=== PATIENT | female | born 1985 | race American Indian/Alaskan Native ===

== ENCOUNTER 2018-08-07 21:47 | Emergency (ER) | payer OTHER ==
[2018-08-07] MEDS ORDERED: ASPIRIN PO ONE (22:54)
[2018-08-07 23:48] LABS: Basophils % (Auto) 0.3 % (0.0-1.8); Eosinophils % (Auto) 1.4 % (0.0-4.3); Hematocrit 34.4 % (30.3-42.9); Hemoglobin 11.7 gm/dl (10.1-14.3); Lymphocytes # (Auto) 2.3 K/mm3 (1.2-5.4); Lymphocytes % (Auto) 31.6 % (13.4-35.0); Mean Corpuscular HGB Conc 34 % (30-34); Mean Corpuscular Volume 92 fl (79-97); Monocytes % (Auto) 10.4 % (0.0-7.3); Platelet Count 300 K/mm3 (140-440); Red Blood Count 3.75 M/mm3 (3.65-5.03); Red Cell Distribution Width 12.5 % (13.2-15.2)
[2018-08-07 23:49] LABS: Eosinophils # (Auto) 0.1 K/mm3 (0.0-0.4); Monocytes # (Auto) 0.8 K/mm3 (0.0-0.8)
[2018-08-08 00:02] LABS: BUN/Creatinine Ratio 13; Blood Urea Nitrogen 12 mg/dL (7-17); Calcium 9.7 mg/dL (8.4-10.2); Hemolysis Index 7
--- NOTE | 2018-08-08 00:04 | XRay Report ---
PROCEDURE: Chest. TECHNIQUE: PA view. HISTORY: Chest pain. COMPARISONS: None. FINDINGS: The heart and mediastinum appear normal. The lungs are clear and well expanded. There are no pleural effusions. The soft tissues and regional skeleton are unremarkable. There is a minimal thoracic scoli osis. Bilateral nipple piercings are noted. IMPRESSION: No evidence of acute disease. This document is electronically signed by Darron Hobbs MD., August 08 2018 12:02:09 AM ET
--- NOTE | 2018-08-08 01:44 | Emergency Department Report ---
ED Chest Pain HPI - General Chief Complaint: Chest Pain Stated Complaint: CHEST PAIN Time Seen by Provider: 08/07/18 22:53 Source: patient Mode of arrival: Ambulatory Limitations: No Limitations - History of Present Illness Initial Comments: 32-year-old female presents to the emergency department from home with complaint of some midsternal chest tightness with some shortness of breath started about 30 minutes prior to arrival. She says that the symptoms come and go and currently she is asymptomatic. Patient denies any past medical history. There is no family history of cardiac disease or events. She is not a tobacco smoker and denies any illicit drug use. She has not taken anything for her symptoms prior to arrival. Patient did have a recent trip down to [place] where she drove down. She denies any lower extremity swelling. - Related Data Allergies Allergy/AdvReac Type Severity Reaction Status Date / Time No Known Allergies Allergy Verified 08/07/18 21:54 Heart Score - HEART Score History: Slightly suspicious EKG: Normal Age: < 45 Risk factors: No known risk factors Troponin: < normal limit HEART Score: 0 - Critical Actions Critical Actions: 0-3 pts:0.9-1.7%risk of adverse cardiac event.Candidate for discharge ED Review of Systems ROS: Stated complaint: CHEST PAIN Other details as noted in HPI Comment: All other systems reviewed and negative Constitutional: denies: chills, fever Eyes: denies: eye pain, vision change ENT: denies: ear pain, throat pain Respiratory: shortness of breath. denies: cough Cardiovascular: chest pain. denies: palpitations Gastrointestinal: denies: abdominal pain, vomiting Genitourinary: denies: dysuria, frequency Musculoskeletal: denies: back pain, arthralgia Skin: denies: rash, lesions Neurological: denies: headache, weakness ED Past Medical Hx - Past Medical History Previous Medical History?: No - Surgical History Past Surgical History?: No - Social History Smoking Status: Never Smoker Substance Use Type: None ED Physical Exam - General Limitations: No Limitations - Other Other exam information: GENERAL: The patient is well-developed well-nourished. HENT: Normocephalic. Atraumatic. Patient has moist mucous membranes. EYES: Extraocular motions are intact. NECK: Supple. Trachea is midline. CHEST/LUNGS: Clear to auscultation. There is no respiratory distress noted. HEART/CARDIOVASCULAR: Regular. There is no tachycardia. There is no murmur. ABDOMEN: Abdomen is soft, nontender. Patient has normal bowel sounds. There is no abdominal distention. SKIN: Skin is warm and dry. NEURO: The patient is awake, alert, and oriented. The patient is cooperative. The patient has no focal neurologic deficits. The patient has normal speech. MUSCULOSKELETAL: There is no tenderness or deformity. There is no limitation range of motion. There is no evidence of acute injury. ED Course Vital Signs 08/08/18 08/08/18 08/08/18 01:23 01:31 01:46 Temperature 98.9 F Pulse Rate 53 L 61 Respiratory 17 15 Rate Blood Pressure 134/74 O2 Sat by Pulse 100 100 Oximetry ZANE score - Zane Score Age > 65: (0) No Aspirin use within the Past 7 Days: (0) No 3 or more CAD Risk Factors: (0) No 2 or more Angina events in past 24 hrs: (1) Yes Known CAD with more than 50% Stenosis: (0) No Elevated Cardiac Markers: (0) No ST Deviation Greater than 0.5mm: (0) No ZANE Score: 1 ED Medical Decision Making - Lab Data Result diagrams: 08/07/18 23:27 08/07/18 23:27 - EKG Data -: EKG Interpreted by Me EKG shows normal: sinus rhythm, axis, intervals, QRS complexes, ST-T waves Rate: normal - EKG Data When compared to previous EKG there are: previous EKG unavailable Interpretation: normal EKG - Radiology Data Radiology results: report reviewed, image reviewed interpreted by me: Chest x-ray does not show any acute process. There are no pleural effusions, o bvious pneumonia and there is no pneumothorax. PROCEDURE: CT ANGIO CHEST TECHNIQUE: Computerized tomographic angiography of the chest was performed after the IV injection of iodinated nonionic contrast including image processing. The image data was postprocessed using 2-dimensional multiplanar reformatted (MPR) and 3-dimensional (MIP and/or volume rendered) techniques. Automated exposure control, adjustment of mA and/or kV according to patient size, or iterative reconstruction dose optimization techniques were utilized. CT DOSE LENGTH PRODUCT: 709.9 mGycm HISTORY: CP, elevated dimer COMPARISONS: Chest x-ray 6 08/07/2018 . FINDINGS: Heart and pericardium: Normal. Thoracic aorta: Normal. Pulmonary vasculature: Normal. Lymph nodes: No enlarged thoracic lymph nodes. Lungs: Normal. Pleural space: No effusion, thickening, or pneumothorax. Musculoskeletal structures: No significant abnormality. Upper abdominal structures: No significant abnormality. IMPRESSION: Normal Examination . No evidence of pulmonary embolus, aortic dissection, or acute process in the chest. This document is electronically signed by Jean Teague MD., August 08 2018 06:06:38 AM ET Transcribed By: RB Dictated By: JEAN TEAGUE MD Electronically Authenticated By: JEAN TEAGUE MD Signed Date/Time: 08/08/18 0608 - Medical Decision Making This patient presents to the emergency department with a complaint of some intermittent chest pains. EKG does not show any signs of ST elevation MS, ischemia or dysrhythmia. Chest x-ray does not show any acute process. The patient has no risk factors for coronary artery disease including any family h istory. Labs have been unremarkable including negative troponins 2 but she did have a very slightly elevated and equivocal d-dimer. For this reason a CT angiography of the chest was done that did not show any pulmonary embolism, aneurysm, dissection, or any other acute processes. Vital signs were stable throughout ED course. The patient was reevaluated multiple times of hours and has not had any return of chest pain at this time. She is low on the heart stroke criteria and low on the ZANE score. For all these reasons, the patient proceeded for discharge home at this time. She has been encouraged to follow up with her primary care physician and has been given a referral for cardiology. She will return to the ER with any worsening of her symptoms or any acute distress. - Differential Diagnosis MS, PE, costochondritis, GERD, anxiety Critical Care Time: No Critical care attestation.: If time is entered above; I have spent that time in minutes in the direct care of this critically ill patient, excluding procedure time. ED Disposition Clinical Impression: Intermittent chest pain Disposition: DC-01 TO HOME OR SELFCARE Is pt being admited?: No Condition: Stable Instructions: Chest Pain (ED) Additional Instructions: Please follow-up with your primary care physician in the next few days. I am giving you a referral for local heart doctor, Dr. Cortés, to follow up regarding your intermittent chest pains. Return to the emergency Department with any worsening of your symptoms or any acute distress. Referrals: CORDELIA CORTÉS MD [Staff Physician] - 2-3 Days PCP, Your [Other] - 2-3 Days Time of Disposition: 06:14
--- NOTE | 2018-08-08 06:08 | Cat Scan Report ---
PROCEDURE: CT ANGIO CHEST TECHNIQUE: Computerized tomographic angiography of the chest was performed after the IV injection of iodinated nonionic contrast including image processing. The image data was postprocessed using 2-di mensional multiplanar reformatted (MPR) and 3-dimensional (MIP and/or volume rendered) techniques. Au tomated exposure control, adjustment of mA and/or kV according to patient size, or iterative reconstr uction dose optimization techniques were utilized. CT DOSE LENGTH PRODUCT: 709.9 mGycm HISTORY: CP, elevated dimer COMPARISONS: Chest x-ray 6 08/07/2018 . FINDINGS: Heart and pericardium: Normal. Thoracic aorta: Normal. Pulmonary vasculature: Normal. Lymph nodes: No enlarged thoracic lymph nodes. Lungs: Normal. Pleural space: No effusion, thickening, or pneumothorax. Musculoskeletal structures: No significant abnormality. Upper abdominal structures: No significant abnormality. IMPRESSION: Normal Examination . No evidence of pulmonary embolus, aortic dissection, or acute proc ess in the chest. This document is electronically signed by Luis Alberto Teague MD., August 08 2018 06:06:38 AM ET
[2018-08-08 07:01] VITALS: BP 128/81
== END 2018-08-08 06:58 | disposition home or self-care (01) ==
LOC: ED 21:47
DX: R07.89 Other chest pain (principal); R06.02 Shortness of breath
CPT/HCPCS: 36415; 71045; 71275; 80048; 84484; 84703; 85025; 85379; 93005; 93010; 99285; Q9967